=== PATIENT | female | born 1970 | race Asian ===

== ENCOUNTER 2017-03-23 02:43 | Emergency (ER) | payer BC ==
[~2017-03-23] VITALS: Ht 162.6 cm; Wt 72.5 kg
[2017-03-23 02:49] VITALS: Ht 162.6 cm; Wt 72.5 kg
[2017-03-23] MEDS ORDERED: HYDROCODONE/APAP (5/325) TAB PO ONE (04:00)
--- NOTE | 2017-03-23 04:47 | RADRPT ---
PROCEDURE: Chest. CLINICAL INDICATION: Chest pain. TECHNIQUE: Single frontal view of the chest was obtained. COMPARISON: 07/28/2007. FINDINGS: The cardiac silhouette is within normal limits. The aortic arch is unremarkable. There is no focal consolidation, vascular congestion or pleural effusion. There is no pneumothorax. IMPRESSION: No evidence for active cardiopulmonary disease. .Karlo Rubio MD, Date Time Electronically viewed and signed by .Karlo Rubio MD, on 03/23/2017 04:47 .T/
--- NOTE | 2017-03-23 04:48 | RADRPT ---
PROCEDURE: XR Cervical Spine. CLINICAL INDICATION: Neck pain TECHNIQUE: AP, lateral, swimmer and odontoid views of the cervical spine were performed. The image s were reviewed on a PACS workstation. COMPARISON: None. FINDINGS: The vertebral body alignment, height and osseous mineralization are normal. The intervertebral disc spaces are well maintained. There are no abnormal calcifications. The prevertebral soft tissues are normal. No radiopaque foreign bodies are identified. There is no acute fracture or subluxation. There is the suggestion of approximate 2.2 cm rounded lik [place] soft tissue density projected over the inferior aspect of the right maxillary sinus which could be secondary to retention cyst. IMPRESSION: Straightening of cervical spine which could be secondary to positioning or muscle spasm. No acute fr acture or dislocation seen. RPTAT: HJES .Marco Russ MD, Date Time Electronically viewed and signed by .Marco Russ MD, on 03/23/2017 04:48 .S/
[2017-03-23 04:58] LABS: ANION GAP 13 (8-16); BLOOD UREA NITROGEN 10 mg/dl (7-20); CALCIUM 8.8 mg/dl (8.4-10.2); CARBON DIOXIDE 27 mmol/L (21-31); CHLORIDE 104 mmol/L (97-110); GLUCOSE 112 mg/dl (70-220); POTASSIUM 3.5 mmol/L (3.5-5.1); SODIUM 140 mmol/L (135-144)
[2017-03-23 05:04] LABS: BASOPHILS % 0.6 % (0.0-2.0); EOSINOPHILS # 0.1 10^3/ul (0.0-0.5); EOSINOPHILS % 1.6 % (0.0-7.0); HEMATOCRIT 37.8 % (37.0-47.0); HEMOGLOBIN 12.3 g/dl (12.0-16.0); LYMPHOCYTES # 1.7 10^3/ul (0.8-2.9); LYMPHOCYTES % 25.4 % (15.0-51.0); MEAN CORPUSCULAR HEMOGLOBIN 26.2 pg (29.0-33.0); MEAN CORPUSCULAR HGB CONC 32.5 g/dl (32.0-37.0); MEAN CORPUSCULAR VOLUME 80.6 fl (82.0-101.0); MEAN PLATELET VOLUME 9.8 fl (7.4-10.4); MONOCYTE # 0.5 10^3/ul (0.3-0.9); MONOCYTES % 6.6 % (0.0-11.0); NEUTROPHIL # 4.5 10^3/ul (1.6-7.5); NEUTROPHILS % 65.4 % (39.0-77.0); PLATELET COUNT 347 10^3/UL (140-415); RED BLOOD COUNT 4.69 10^6/ul (4.20-5.40); RED CELL DISTRIBUTION WIDTH 13.4 % (11.5-14.5); WHITE BLOOD COUNT 6.8 10^3/ul (4.8-10.8)
[2017-03-23 05:20] LABS: TROPONIN-I < 0.012 ng/ml (0.00-0.12)
[2017-03-23] MEDS ORDERED: ORPH100T PO (05:24)
[2017-03-23] MEDS ORDERED: FIORICET PO (05:24)
[2017-03-23] MEDS ORDERED: TYL500 PO (05:25)
[2017-03-23 05:37] VITALS: BP 130/93; PULSE 80; RESP 18; TEMP 98.1
--- NOTE | 2017-03-23 05:43 | ERD ---
ER Documentation Chief Complaint Chief Complaint neck pain today HPI This is a 46-year-old female that presents to the ER stating that yesterday around 3 per p.m. while she was watching TV she felt neck pain rated up her neck into her head and down into her chest. Patient states that it is almost as if her neck is stiff but not really. Pain has been constant she tried Aleve however did not work. Patient denies any shortness of breath. She denies any fevers or chills. She does admit to some nausea however denies vomiting or diarrhea. She denies any head trauma. She does not drink or smoke. She does have a past medical history of hypertension and she takes amlodipine for this. ROS 12 point review of systems was done, all negative except per HPI. Medications Home Meds Active Scripts Acetaminophen* (Tylenol*) 500 Mg Tab, 1000 MG PO Q8H Y for PAIN AND OR ELEVATED TEMP for 3 Days, TAB Prov:VICKI,VON C 03/23/17 Orphenadrine Citrate (Norflex) 100 Mg Tablet.sa, 100 MG PO BID for 7 Days, TAB.SA Prov:VICKI,VON C 03/23/17 Allergies Allergies: Coded Allergies: ibuprofen (Verified Allergy, Unknown, 03/23/17) PMhx/Soc Medical and Surgical Hx: pt denies Surgical Hx Hx Cardiac Disorders: Yes (HTN) Hx Alcohol Use: No Hx Substance Use: No Hx Tobacco Use: No Smoking Status: Never smoker Physical Exam Vitals Vital Signs Date Time Temp Pulse Resp B/P Pulse Ox O2 Delivery O2 Flow Rate FiO2 03/23/17 02:49 97.8 92 20 141/88 98 Physical Exam GENERAL: The patient is well developed and appropriate for usual state of health , in no apparent distress. HEENT: Atraumatic. Conjunctivae are pink. Pupils equal, round, and reactive to light. Extraocular muscles are grossly intact. Bilateral tympanic membranes are clear with no evidence of erythema, effusion or dulling of the light reflex. The oropharynx is clear with no erythema or exudates. NECK: C-spine is soft and supple. There is no cervical lymphadenopathy. Very tense trapezius muscles bilaterally. CHEST: Clear to auscultation bilaterally. There are no rales, wheezes or rhonchi. HEART: Regular rate and rhythm. No murmurs, clicks, rubs or gallops. EXTREMITIES: Full range of motion. Grossly neurovascularly intact. NEURO: Alert and oriented. Cranial nerves II through XII are intact. Motor strength in all 4 extremities with 5/5 strength. Sensation grossly intact. Normal speech and gait. SKIN: There is no apparent rash or petechia. The skin is warm and dry. Result Diagram: 03/23/17 0405 03/23/17 0405 Results 24 hrs Laboratory Tests Test 03/23/17 04:05 White Blood Count 6.810^3/ul Red Blood Count 4.6910^6/ul Hemoglobin 12.3g/dl Hematocrit 37.8% Mean Corpuscular Volume 80.6fl Mean Corpuscular Hemoglobin 26.2pg Mean Corpuscular Hemoglobin Concent 32.5g/dl Red Cell Distribution Width 13.4% Platelet Count 31181^3/UL Mean Platelet Volume 9.8fl Neutrophils % 65.4% Lymphocytes % 25.4% Monocytes % 6.6% Eosinophils % 1.6% Basophils % 0.6% Nucleated Red Blood Cells % 0.0/100WBC Neutrophils # 4.510^3/ul Lymphocytes # 1.710^3/ul Monocytes # 0.510^3/ul Eosinophils # 0.110^3/ul Basophils # 0.010^3/ul Nucleated Red Blood Cells # 0.010^3/ul Sodium Level 140mmol/L Potassium Level 3.5mmol/L Chloride Level 104mmol/L Carbon Dioxide Level 27mmol/L Anion Gap 13 Blood Urea Nitrogen 10mg/dl Creatinine 0.60mg/dl Glucose Level 112mg/dl Calcium Level 8.8mg/dl Troponin I < 0.012ng/ml Current Medications Medications (Trade) Dose Ordered Sig/Tabby Route PRN Reason Start Time Stop Time Status Last Admin Dose Admin Acetaminophen/ Hydrocodone Bitart (Kerrick (5/325)) 1 tab ONCE ONCE PO 03/23/17 04:00 03/23/17 04:01 DC 03/23/17 04:12 [place] [id number] Radiology Main Line: [phone] DIAGNOSTIC IMAGING REPORT Patient: SARAH LYNCH : 1970 Age: 46 Sex: F MR #: [id number] DOS: 03/23/17 0352 Ordering MD: VON COHEN PA-C Location: [facility] Room/Bed: PROCEDURE: Chest. CLINICAL INDICATION: Chest pain. TECHNIQUE: Single frontal view of the chest was obtained. COMPARISON: 07/28/2007. FINDINGS: The cardiac silhouette is within normal limits. The aortic arch is unremarkable. There is no focal consolidation, vascular congestion or pleural effusion. There is no pneumothorax. IMPRESSION: No evidence for active cardiopulmonary disease. .Karlo Rubio MD, MD Date Time Electronically viewed and signed by .Karlo Rubio MD, on 03/23/2017 04:47 .T/ CC: VON COHEN [address] [place] [address] Radiology Main Line: [phone] DIAGNOSTIC IMAGING REPORT Patient: SARAH LYNCH : 1970 Age: 46 Sex: F MR #: [id number] DOS: 03/23/17 0000 Ordering MD: VON COHEN PA-C Location: [facility] Room/Bed: PROCEDURE: XR Cervical Spine. CLINICAL INDICATION: Neck pain TECHNIQUE: AP, lateral, swimmer and odontoid views of the cervical spine were performed. The images were reviewed on a PACS workstation. COMPARISON: None. FINDINGS: The vertebral body alignment, height and osseous mineralization are normal. The intervertebral disc spaces are well maintained. There are no abnormal calcifications. The prevertebral soft tissues are normal. No radiopaque foreign bodies are identified. There is no acute fracture or subluxation. There is the suggestion of approximate 2.2 cm rounded likely soft tissue density projected over the inferior aspect of the right maxillary sinus which could be secondary to retention cyst. IMPRESSION: Straightening of cervical spine which could be secondary to positioning or muscle spasm. No acute fracture or dislocation seen. RPTAT: HJES .Marco Russ MD, Date Time Electronically viewed and signed by .Marco Russ MD, on 03/23/2017 04:48 .S/ CC: VON COHEN Procedures/MDM Is a 46-year-old female presents to the ER with neck pain, headache, chest pain differential diagnosis includes but is not limited to; spasm, torticollis, spinal cord injury, transverse myelitis migraine headache, cluster headache, tension headache subarachnoid bleeding, stroke, meningitis, sepsis, acute [place], pneumonia, pulmonary embolism, AAA, Boerhaave syndrome. Tense trapezius muscles were very stiff, there was no evidence of fractures or dislocations on x -ray. Patient for spinal cord injury or transverse myelitis is low as patient does not have any history of trauma and is neurovascularly intact with no weaknesses to her upper extremities. Request to patient's headache she is neurologically intact with no focal neurological deficits. Doubt intracranial emergency at this time. Aggressive patient's chest pain, patient's EKG was done [address] elevation no T-wave inversion read by Dr. Guidry. His troponin was negative. Suspicion for acute cardiac etiology is low. Her heart score is 1 which is very low risk. She will be sent home with Norflex and Tylenol. She is to follow-up with her primary care doctor within 1-2 days return to ER sooner if symptoms worsen. My medical decision making sure with the patient she understands and agrees with plan. Departure Diagnosis: Primary Impression: Chest pain Additional Impressions: Headache Neck pain Condition: Stable Patient Instructions: Self-Care for Headaches, Neck Pain, No Trauma Additional Instructions: Call your primary care doctor TOMORROW for an appointment during the next 1-2 days.See the doctor sooner or return here if your condition worsens before your appointment time. VON COHEN Mar 23, 2017 05:43
== END 2017-03-23 05:38 | disposition home or self-care (01) ==
LOC: FTE 02:43
DX: R07.9 Chest pain, unspecified (principal); R51 Headache; I10 Essential (primary) hypertension
CPT/HCPCS: 36415; 71010; 72040; 80048; 84484; 85025; 93005

== ENCOUNTER 2017-05-10 17:07 | Emergency (ER) | END 2017-05-10 22:58 | disposition home or self-care (01) ==

== ENCOUNTER 2017-05-14 14:52 | Emergency (ER) | END 2017-05-14 17:43 | disposition home or self-care (01) ==

== ENCOUNTER 2017-08-15 10:00 | Emergency (ER) | END 2017-08-15 13:43 | disposition home or self-care (01) ==

== ENCOUNTER 2017-09-29 20:07 | Inpatient (IN) | END 2017-10-02 20:40 | disposition home or self-care (01) | DRG 418 ==